=== PATIENT | female | born 1985 | race Caucasian/White ===

== ENCOUNTER 2019-07-09 19:26 | Emergency (ER) | payer MEDICAID, SELFPAY ==
[2019-07-09 19:27] VITALS: BP 133/84; PULSE 85; RESP 18; TEMP 36.2; O2SAT 94; BMI 51.5
--- NOTE | 2019-07-09 20:04 | ED.VIS.GEN ---
History of Present Illness Chief Complaint: Shortness of Breath Informant: Patient Onset: Today Context: Gradual Onset Current Severity: Mild Maximum Severity: Mild Narrative: She presents with cough and burning sensation in her chest today. She states it feels like when she had walking pneumonia couple months ago. She has not noted a fever. She is not a smoker. She denies DVT risk factors. Past Medical History - Allergies and Home Meds Allergies/Adverse Reactions: Allergies No Known Allergies Allergy (Verified 07/09/19 19:30) Primary Care Physician: Diego Yoon,Nereida Galan [Primary Care Provider] - 1 Week if not improving Prior records reviewed: Yes Surgical History: - - Thyroidectomy Smoking Status: Never smoker Review of Systems General: Denies: Chills Eyes: Denies: Visual changes - bilaterally ENT: Denies: Bilateral ear pain Cardiovascular: Reports: Chest pain - With cough only Respiratory: Reports: Dyspnea, Cough, Sputum Gastrointestinal: Denies: Abdominal pain, Nausea, Vomiting Genitourinary: Denies: Dysuria Musculoskeletal: Reports: Myalgias, Back pain Skin: Denies: Rash Neurological: Denies: Headache Hematologic: Denies: Easy bruising Allergy: Denies: Uticaria Physical Exam Vital Signs/Narrative: Vital Signs Temp Pulse Resp BP Pulse Ox 07/09/19 19:27 97.1 F L 85 18 133/84 H 94 Inital Vital Signs reviewed: Yes General: Well nourished, Well developed Head: Normocephalic ENT: Moist mucous membranes Neck: Supple Cardiovascular: Regular rate, Regular rhythm Respiratory: No distress, CTA bilaterally Abdomen: Soft, Nontender Back: Nontender Extremities: Nontender Skin: Normal color Neurological: Alert, Oriented x3 Psychological: Normal affect Diagnostic/Tx/Re-eval Impressions Chest X-Ray 07/09/19 20:05 IMPRESSION: Normal x-ray examination of the chest. Electronically Signed: Carson Howard DO at 20:28 EDT Tel , Service support , 07/09/19 20:05 Chest PA and Lateral [RAD] Stat Laboratory Results 07/09/19 07/09/19 07/09/19 20:52 20:52 20:52 WBC 12.8 H RBC 4.31 Hgb 12.5 Hct 38.5 MCV 89.3 MCH 29.0 MCHC 32.5 RDW Std Deviation 48.9 H RDW Coeff of Kristen 14.8 H Plt Count 398 MPV 9.2 Immature Gran % (Auto) 0.300 Neut % (Auto) 56.8 Lymph % (Auto) 35.1 Pleasants % (Auto) 5.6 Eos % (Auto) 1.7 Baso % (Auto) 0.5 Absolute Neuts (auto) 7.3 Absolute Lymphs (auto) 4.51 Nucleated RBC % 0 Differential Comment SCANNED D-Dimer Quant (PE/DVT) < 0.27 L Sodium 142 Potassium 3.7 Chloride 109 H Carbon Dioxide 28.0 Anion Gap 5 BUN 17 Creatinine 1.09 H Estim Creat Clear Calc 68.72 Est GFR (MDRD) Af Amer 74 Est GFR (MDRD) Non-Af 61 BUN/Creatinine Ratio 15.6 Glucose 120 H Calcium 8.3 L Troponin I < 0.015 Serum , Qual 07/09/19 20:52 WBC RBC Hgb Hct MCV MCH MCHC RDW Std Deviation RDW Coeff of Kristen Plt Count MPV Immature Gran % (Auto) Neut % (Auto) Lymph % (Auto) Pleasants % (Auto) Eos % (Auto) Baso % (Auto) Absolute Neuts (auto) Absolute Lymphs (auto) Nucleated RBC % Differential Comment D-Dimer Quant (PE/DVT) Sodium Potassium Chloride Carbon Dioxide Anion Gap BUN Creatinine Estim Creat Clear Calc Est GFR (MDRD) Af Amer Est GFR (MDRD) Non-Af BUN/Creatinine Ratio Glucose Calcium Troponin I Serum , Qual NEGATIVE - EKG Follow-up EKG Interpretation: Sinus Rhythm - Sinus at 88 with no acute ischemia. - Medical Decision Making Patient initially had two-view chest x-ray performed which is unremarkable. In light of the fact that this did not explain her current symptoms, further work-up was pursued. Cardiac evaluation as well as d-dimer are unremarkable. Test results are discussed with the patient. I believe she has bronchitis. She will use Tylenol and ibuprofen at home. Return for worsening symptoms or concerns. ED Disposition - Plan for ED Patient: Disposition: Home or Assisted Living Diagnosis: Bronchitis Instructions: BRONCHITIS, No Antibiotic (Adult) Referrals: Nereida Ramos [Primary Care Provider] - 1 Week if not improving
--- NOTE | 2019-07-09 20:05 | RAD_ITS ---
STUDY: X-RAY CHEST REASON FOR EXAM: Female, 33 years old. Chest pain TECHNIQUE: PA and lateral views of the chest. COMPARISON: None. FINDINGS: The lungs are clear and expanded. There is no demonstrated pleural abnormality. Normal size heart. Normal mediastinum and paddy. Normal visualized pulmonary arteries. Normal visualized aortic arch and descending thoracic aorta. Normal visualized thoracic spine. Normal visualized ribs, clavicles, and shoulders. There is no demonstrated abnormality of the visualized soft tissue structures of the upper abdomen. RAD/Chest PA and Lateral IMPRESSION: Normal x-ray examination of the chest. Electronically Signed: Carson Howard DO at 20:28 EDT Tel , Service support ,
--- NOTE | 2019-07-09 20:47 | EKG12_ITS ---
Test Reason : CP Blood Pressure : / mmHG Vent. Rate : 088 BPM Atrial Rate : 088 BPM P-R Int : 166 ms QRS Dur : 098 ms QT Int : 386 ms P-R-T Axes : 049 062 039 degrees QTc Int : 467 ms Normal sinus rhythm Normal ECG Confirmed by JB HARRISON, DEBRA ([id number]), managing editor ROSARIO PEREIRA ([id number]) on 07/14/2019 10:37:00 AM Referred By: Jacqueline Cunha Confirmed By:GERMAN MUHAMMAD MD
--- NOTE | 2019-07-09 20:51 | ED.RN ---
NO OLD EKGS IN MUSE
[2019-07-09 21:05] LABS: Absolute Lymphocyte Count 4.51 X10^3/uL (0.83-4.51); Absolute Neutrophil Count 7.3 X10^3/uL (2.0-7.7); Basophil# 0.07 X10^3/uL; Basophil% 0.5 % (0-1); Eosinophil# 0.22 X10^3/uL; Eosinophils% 1.7 % (0-5); Hematocrit 38.5 % (37-47); Hemoglobin 12.5 g/dL (12.0-15.0); Lymphocyte # 4.51 X10^3/ul (4.0); Lymphocyte % 35.1 % (19-41); Mean Corp Hgb Conc 32.5 g/dL (32-36); Mean Corpuscular Volume 89.3 fL (81-99); Mean Platelet Vol. 9.2 fl (6.2-12.0); Monocyte# 0.72 X10^3/uL; Monocyte% 5.6 % (0-10); NRBC Flagged by Analyzer 0 % (0-5); Neutrophil # 7.28 X10^3/uL (2.7-7.7); Neutrophil % 56.8 % (47-70); POSITIVE MORPHOLOGY YES; Platelet Count 398 K/mm3 (150-450); RBC Distribution Width CV 14.8 % (11.6-14.6); RBC Distribution Width SD 48.9 fl (35.1-43.9); Red Blood Count 4.31 M/mm3 (4.2-5.4); White Blood Count 12.8 K/mm3 (4.4-11.0)
[2019-07-09 21:08] LABS: Differential Indicated SCAN CRITERIA MET
[2019-07-09 21:16] LABS: D-Dimer Quantitative (DVT/PE) < 0.27 FEU/ug/m (0.27-0.49)
[2019-07-09 21:21] LABS: Internal QC Validated? YES +Cl - CLEAR BKGD; Pregnancy, Serum, hCG Quali. NEGATIVE Negative
[2019-07-09 21:29] LABS: Anion Gap 5 (5-15); BUN 17 mg/dL (7-18); BUN/Creat Ratio 15.6 RATIO (10-20); Calcium,Total 8.3 mg/dL (8.5-10.1); Chloride 109 mmol/L (98-107); Creatinine, Serum 1.09 mg/dL (0.55-1.02); EST Glomerular Filtration Rate 61 mL/min (>60); Est Glom Filt Rate - Afr Amer 74 mL/min (>60); Estimated Creatinine Clearance 68.72 ml/min; Glucose 120 mg/dL (74-106); Potassium 3.7 mmol/L (3.5-5.1); Sodium Level 142 mmol/L (136-145)
[2019-07-09 21:34] LABS: Differential Comment SCANNED
[2019-07-09 22:24] VITALS: PULSE 86; RESP 19; O2SAT 95
[2019-07-09 22:37] VITALS: RESP 18
== END 2019-07-09 22:38 | disposition home or self-care (01) ==
PROVIDERS: Emergency Provider Emergency Medicine; Referring Provider Nurse Practitioner Family
DX: J40 Bronchitis, not specified as acute or chronic (principal); Z87.01 Personal history of pneumonia (recurrent)
CPT/HCPCS: 71046; 80048; 84484; 84703; 85025; 85379; 93005; 99283

== ENCOUNTER → 2020-03-28 | Outpatient (CLI) | payer MEDICAID, SELFPAY ==
--- NOTE | 2020-03-28 14:30 | LES_PTH ---
PATIENT: CHARLES MATTHEW LOC: [facility] U#:[id number] AGE/SX: 34/F ROOM: RE03/28/[address]: Dr. Malvin Mcknight MD : 1985 BED: DIS: 03/28/2020 SPEC #: [id number] RECD: 03/28/20 15:26 STATUS: LIV RERa #: [id number] JEAN CLAUDE: 03/28/20 14:[address]: Malvin Mcknight DEPT: SURGICAL PATHOLOGY RECD BY: Liam Thornton ENTERED: 03/29/20 09:24 SP TYPE: Lesion OTHR DR: Nereida [facility] Tissues: Skin of abdomen, NOS Procedures: Surgery Specimen Level IV HEADER OPERATION: 4 mm punch biopsy of abdominal skin lesion PRE-OP DIAGNOSIS: Neoplasm of skin TISSUE SUBMITTED: Punch biopsy abdominal skin lesion MICROSCOPIC DIAGNOSIS Abdominal skin lesion, punch biopsy: Intradermal nevus. See comment. SJ:pio 03/30/20 COMMENT Clinical correlation and appropriate follow up are necessary. MICROSCOPIC DESCRIPTION Slides are reviewed. GROSS DESCRIPTION Received in fixative is one container labeled with the patient's name and designated punch biopsy, abdominal skin lesion. The specimen consists of a punch biopsy of dark brown skin measuring 0.4 cm in diameter and 0.5 cm in length. The specimen is totally submitted in one cassette. / SJ:pio 03/29/20 TC:1 CPT: 16535
[2020-03-28 15:04] VITALS: BMI 51.5
== END | disposition home or self-care (01) ==
LOC: LABSPEC 15:45
PROVIDERS: Referring Provider Surgery; Visit Provider Surgery
DX: D22.5 Melanocytic nevi of trunk (principal)
CPT/HCPCS: 88305

== ENCOUNTER → 2020-08-19 11:47 | Outpatient (CLI) | payer MEDICAID, SELFPAY ==
[2020-03-28 15:04] VITALS: BMI 51.5
[2020-08-19 15:51] LABS: Thyroid Stim Hormone (TSH) 2.74 uIU/mL (0.358-3.74)
[2020-08-23 10:27] LABS: Anti-Thyroglobulin AB < 1.0 IU/mL (0.0-0.9); Thyroglobulin, Serum Qt. < 0.1 ng/mL (1.5-38.5)
== END ==
PROVIDERS: Referring Provider Internal Medicine Endocrinology, Diabetes & Metabolism; Visit Provider Internal Medicine Endocrinology, Diabetes & Metabolism
DX: E89.0 Postprocedural hypothyroidism (principal); C73 Malignant neoplasm of thyroid gland
CPT/HCPCS: 36415; 84432; 84439; 84443; 86800

== ENCOUNTER 2020-08-20 08:15 | Outpatient (CLI) | payer MEDICAID, SELFPAY ==
[2020-03-28 15:04] VITALS: BMI 51.5
[2020-08-20 08:23] VITALS: BP 108/68; PULSE 78; TEMP 36.2
[2020-08-20 08:24] VITALS: TEMP 36.2
[2020-08-20 08:43] VITALS: BMI 55.2
--- NOTE | 2020-08-20 18:20 | OB.TRI.HP_ITS ---
History of Present Illness Date of Service: 08/20/20 Was patient seen by the physician?: No Reason For Visit: DECREASED MOVEMENT Date of Service: 08/20/20 Final FRANNIE: 10/29/20 Final FRANNIE Source: US <20 weeks Gestational age: 30 Weeks and 0 Days History of Present Illness: 30-week intrauterine who presents to labor and delivery for decreased movement. Patient reports that her toddler kicked her in the stomach last evening and she has felt less movement this morning. She presently sees Dr. Blair in [place] and will see him during the rest of the . She denies any contractions and points to an area just below her umbilicus where the toddler kicked her last evening. No bruising or tenderness noted at this time per nursing staff. Patient has not used Tylenol or other medications for discomfort. She denies any vaginal bleeding. Allergies No Known Allergies Allergy (Verified 03/28/20 15:01) - Pertinent Past Medical History Medical History: Past Medical History (Last Reviewed 03/28/20 @ 15:02 by Radha Mckenzie) (Acute) Hx of seizure disorder (Acute) Nausea and vomiting in (Acute) Neoplasm of uncertain behavior (Acute) Fatigue (Acute) Thyroid cancer (Chronic) Postoperative primary hypothyroidism (Chronic) Surgical History: Past Surgical History (Last Reviewed 03/28/20 @ 15:02 by Radha Mckenzie) History of (Acute) H/O total thyroidectomy (Inactive) Physical Exam Vitals: Vital Signs Temp Pulse BP 97.2 F L 78 108/68 08/20/20 08:24 08/20/20 08:23 08/20/20 08:23 NST - FHR Rate Baby A NST Reactive:: Yes, Appropriate for gestational age FHR Category:: Category I Uterine Activity:: No contractions noted. Impression/Plan 38-week intrauterine with minor trauma last evening. Reactive nonstress test today. No evidence of severe trauma. Recommend follow-up with her [employer]NALYST this week. Tylenol as needed for minor discomfort. To return if decreased movement continues to be noted or any bleeding.
== END 2020-08-20 09:10 | disposition home or self-care (01) ==
LOC: WPOUT 08:21 → WP 08:22
PROVIDERS: Referring Provider Obstetrics & Gynecology; Visit Provider Obstetrics & Gynecology
DX: O71.89 Other specified obstetric trauma (principal); O99.353 Diseases of the nervous system complicating pregnancy, third trimester; G40.909 Epilepsy, unspecified, not intractable, without status epilepticus; O99.283 Endocrine, nutritional and metabolic diseases complicating pregnancy, third trimester; E89.0 Postprocedural hypothyroidism; Z3A.38 38 weeks gestation of pregnancy
CPT/HCPCS: 59025; 59050; 99218; G0378

== ENCOUNTER → 2021-03-27 15:49 | Outpatient (CLI) | payer MEDICAID, SELFPAY ==
[2020-11-30 08:44] VITALS: BMI 55.2
[2021-03-27 19:37] LABS: T4 Free Direct 0.19 ng/dL (0.76-1.46)
[2021-03-29 16:12] LABS: Anti-Thyroglobulin AB < 1.0 IU/mL (0.0-0.9); Thyroglobulin, Serum Qt. < 0.1 ng/mL (1.5-38.5)
== END ==
PROVIDERS: Referring Provider Internal Medicine Endocrinology, Diabetes & Metabolism; Visit Provider Internal Medicine Endocrinology, Diabetes & Metabolism
DX: C73 Malignant neoplasm of thyroid gland (principal); E89.0 Postprocedural hypothyroidism
CPT/HCPCS: 36415; 84432; 84439; 84443; 86800

== ENCOUNTER → 2021-07-13 14:48 | Outpatient (CLI) | payer MEDICAID, SELFPAY ==
[2021-07-13 17:59] LABS: T4 Free Direct 0.48 ng/dL (0.76-1.46)
[2021-07-18 23:23] LABS: Anti-Thyroglobulin AB < 1.0 IU/mL (0.0-0.9); Thyroglobulin, Serum Qt. < 0.1 ng/mL (1.5-38.5)
== END ==
PROVIDERS: Referring Provider Internal Medicine Endocrinology, Diabetes & Metabolism; Visit Provider Internal Medicine Endocrinology, Diabetes & Metabolism
DX: C73 Malignant neoplasm of thyroid gland (principal); E89.0 Postprocedural hypothyroidism
CPT/HCPCS: 36415; 84432; 84439; 84443; 86800

== ENCOUNTER → 2021-08-30 12:12 | Outpatient (CLI) | payer MEDICAID, SELFPAY ==
[2021-08-30 15:44] LABS: T4 Free Direct 1.16 ng/dL (0.76-1.46); Thyroid Stim Hormone (TSH) 4.44 uIU/mL (0.358-3.74)
== END ==
PROVIDERS: Referring Provider Internal Medicine Endocrinology, Diabetes & Metabolism; Visit Provider Internal Medicine Endocrinology, Diabetes & Metabolism
DX: E89.0 Postprocedural hypothyroidism (principal)
CPT/HCPCS: 36415; 84439; 84443

== ENCOUNTER → 2022-03-14 | Outpatient (CLI) | payer MEDICAID, SELFPAY ==
[2022-03-14 15:34] LABS: T4 Free Direct 1.03 ng/dL (0.76-1.46); Thyroid Stim Hormone (TSH) 1.75 uIU/mL (0.358-3.74)
== END | disposition home or self-care (01) ==
LOC: BIMLAB 12:00
PROVIDERS: Referring Provider Internal Medicine Endocrinology, Diabetes & Metabolism; Visit Provider Internal Medicine Endocrinology, Diabetes & Metabolism
DX: E89.0 Postprocedural hypothyroidism (principal)
CPT/HCPCS: 36415; 84439; 84443

== ENCOUNTER → 2022-05-11 | Outpatient (CLI) | payer MEDICAID, SELFPAY ==
--- NOTE | 2022-05-11 18:53 | RAD_ITS ---
STUDY: X-RAY - RIGHT SHOULDER REASON FOR EXAM: Female, 36 years old. PAIN TECHNIQUE: 4 view(s) of the shoulder. COMPARISON: None. FINDINGS: Normal glenohumeral articulation. Normal acromioclavicular joint. Normal acromion. Normal humeral head and visualized proximal humerus. The soft tissue structures are unremarkable. Normal visualized pulmonary apex. RAD/Shoulder min 2 Views IMPRESSION: Normal x-ray examination of the shoulder. Electronically Signed: Ana Grey MD at 20:20 EDT ,
--- NOTE | 2022-05-11 18:53 | RAD_ITS ---
EXAM: XR CERVICAL SPINE, 2 OR 3 VIEWS CLINICAL INDICATION: PAIN TECHNIQUE: Frontal and lateral views of the cervical spine. This report was created using [employer] report [place] technology. COMPARISON: None. FINDINGS: VERTEBRAE: There is mild straightening of the normal cervical lordosis. This can suggest neck strain. Preserved vertebral body height. No acute fracture. No spondylolisthesis. No significant facet arthropathy. DISC SPACES: Unremarkable. Disc spaces are maintained. SOFT TISSUES: Unremarkable. No prevertebral soft tissue widening. LUNG APICES: Clear. RAD/Cerv Spine 2 or 3 Views IMPRESSION: There is mild straightening of the normal cervical lordosis. This can suggest neck strain. Electronically Signed: Michael Yee MD at 21:16 EDT ,
--- NOTE | 2022-05-11 18:53 | RAD_ITS ---
EXAM: XR THORACIC SPINE, 3 VIEWS CLINICAL INDICATION: PAIN TECHNIQUE: Frontal, lateral and swimmer''s views of the thoracic spine. This report was created using [employer] report [employer] technology. COMPARISON: None. FINDINGS: VERTEBRAE: Unremarkable. Preserved vertebral body height. No fracture. No spondylolisthesis. Preservation of the normal thoracic kyphosis. No significant facet arthropathy. DISC SPACES: Unremarkable. Disc spaces are maintained. RAD/Thoracic Spine 3 Views IMPRESSION: No evidence of thoracic spinal fracture or spondylolisthesis. Electronically Signed: Michael Yee MD at 21:17 EDT ,
== END | disposition home or self-care (01) ==
LOC: RAD 18:46
PROVIDERS: Visit Provider Nurse Practitioner Adult Health
DX: M25.511 Pain in right shoulder (principal); M54.2 Cervicalgia; M54.6 Pain in thoracic spine
CPT/HCPCS: 72040; 72072; 73030

== ENCOUNTER 2022-06-19 16:30 | Outpatient (RCR) | payer MEDICAID, SELFPAY ==
--- NOTE | 2022-05-24 18:01 | HP.PTEVAL ---
Patient's Visit Information CHARLES MATTHEW is a 36 year old F referred to Physical Therapy by ERNESTINA Wright with a diagnosis of neck and shoulder pain. Date of Evaluation: 05/24/22 Physical Therapist: Michael Ling, PT, ATC - Visit Plan Frequency: 2x /Week Duration: 2-4 Weeks Plan: Postural edu, RRIS, R UE strengthening, scap stab ex's, DTR to c/s and R UT, UBE, and HEP - Subjective Pt reports she began to experience an itching sensation on her R upper trap about 2 months ago. Pt reports she has a Hx of cancer in her frailty, and so her doctor wanted to rule out cancer first. Now that the cancer has been ruled out, she has been sent here to try and alleviate her pain. Pt reports the pain is always worse at night. Pt reports the pain wakes her up multiple times throughout the night. Pt reports she has to get up and move around in order for her pain to stop hurting and feeling itchy. Pt reports no PMHx of this pain. Pt reports she has neck pain today, but notes this is the first time she has had this pain. Pt denies tingling or numbness at this time, but notes she has carpal tunnel which needs to be surgically repaired. Pt reports she was placed on a steroid the other day and notes this has helped her pain a lot. Pt reports the only this that causes this pain to worsen is sleeping on her R shoulder. 1/10 pain currently, 7/10 pain at worst (when she is trying to sleep) - Pain R upper trap Pain Intensity (Out of 10): 1 Pain Intensity Range: 7 - Objective Neuro: B UE sensation is WNL to light touch. B bicipital reflex= 2/3. Palpation: Pt is very sore on the levator scap region. Muscle guarding present at this time. ROM: B UE is WFL when compared bilaterally. MMT: R UE is grossly 4/5 throughout. L UE 5/5 throughout. Special testing: Pos apley compression test, neg distraciton test. - Balance/Special Test Scores Quick DASH Score: 25.0000 - Goals Goal 1:: Decrease R shoulder pain x 50% to aid with sleep Goal Time Frame: 4-6 Weeks Goal 2:: Increase R UE strength x 1 grade to aid with IADL's Goal Time Frame: 4-6 Weeks Goal 3:: I with HEP Goal Time Frame: 4-6 Weeks - Rehabilitation Potential Physical Therapy Diagnosis: Pt has neck pain, shoulder pain, and sleep difficulty at this time secondary to R upper trap strain Rehabilitation Potential: Good - Anticipated Interventions Patient/Client Instruction: Educate patient on: Condition, Plan of Care For the Purpose of:: To improve self management Therapeutic Exercise to Include: Strength training, Endurance training, Postural training, Scapular Strength/Stabilization For the Purpose of:: To decrease pain, To improve muscle performance and motor function, To increase tolerance to activity/condition/position Manual Therapy Techniques to Include: Soft tissue mobilization For the Purpose of:: To decrease pain Thank you for the opportunity to evaluate your patient. For Medicare and Medicare HMO plans, please review the plan of care and approve it. It will need to be FAXED BACK to us at [phone] for Medicare purposes. For Medicare only, by signing this I certify the plan of care. Please let me know if there are questions or concerns regarding this plan of care. Physician Signature: Date:
--- NOTE | 2022-10-17 14:01 | HP.PT.NRP ---
CHARLES MATTHEW was seen in my office for initial evaluation on 05/24/22. The following Plan of Care was established for this patient: Initial Frequency: 2x /Week Initial Duration: 2-4 Weeks Patient/Client Instruction: Educate patient on: Condition, Plan of Care For the Purpose of:: To improve self management Therapeutic Exercise to Include: Strength training, Endurance training, Postural training, Scapular Strength/Stabilization For the Purpose of:: To decrease pain, To improve muscle performance and motor function, To increase tolerance to activity/condition/position Manual Therapy Techniques to Include: Soft tissue mobilization For the Purpose of:: To decrease pain This patient was last seen in our office . Pertinent comments regarding their Physical therapy will appear below: Pt was treated for neck pain for 3 PT visits through the date of 06/19/22. Pt has not returned through todays date, and is discontinued at this time At this point I will be discontinuing this patient from physical therapy. I would be happy to see this patient again in the future if found appropriate by the physician. Thank you! Michael Ling, PT, ATC Balance/Gait/Functional tests - Balance/Special Test Scores Quick DASH Score: 25.0000
== END 2022-06-19 19:00 | disposition home or self-care (01) ==
LOC: PT 16:30
PROVIDERS: Referring Provider Nurse Practitioner Adult Health; Visit Provider Nurse Practitioner Adult Health
DX: M54.2 Cervicalgia (principal); M54.9 Dorsalgia, unspecified; M25.511 Pain in right shoulder
CPT/HCPCS: 97110; 97161

== ENCOUNTER → 2022-09-17 | Outpatient (CLI) | payer MEDICAID, SELFPAY ==
--- NOTE | 2022-09-17 13:37 | US_ITS ---
EXAM: US FIRST TRIMESTER , endovaginal CLINICAL INDICATION: Dating and viability determination TECHNIQUE: Real-time endovaginal obstetrical ultrasound of the maternal pelvis and a first trimester with image documentation. This report was created using [employer] report generation technology. COMPARISON: None. FINDINGS: GESTATION: 16 mm intrauterine gestational sac identified containing a 3.5 mm yolk sac but no embryo. PLACENTA/AMNIOTIC FLUID: Cannot be adequately evaluated due to the early gestational age. UTERUS/CERVIX: Multiple calcified uterine fibroids are noted measuring up to 3.6 cm in diameter. Nabothian cysts are noted. OVARIES: Right ovary measures 2.8 x 1.9 x 2.0 cm. Left ovary measures 3.4 x 2.4 x 2.6 cm and contains an 18 mm corpus luteum. No mass. FREE FLUID: No adnexal mass or free pelvic fluid. US/Init OB < 14Wks US IMPRESSION: Early intrauterine gestational sac containing a yolk sac but no embryo. Follow-up ultrasound exam in 7-10 days recommended to confirm viable . Multiple calcified uterine fibroids. Electronically Signed: Kali Walton MD at 8:05 EST ,
== END | disposition home or self-care (01) ==
LOC: US 13:36
PROVIDERS: Referring Provider Specialist; Visit Provider Specialist
DX: Z36.87 Encounter for antenatal screening for uncertain dates (principal)
CPT/HCPCS: 76801

== ENCOUNTER → 2022-09-27 | Outpatient (CLI) | payer MEDICAID, SELFPAY ==
--- NOTE | 2022-09-27 12:08 | US_ITS ---
STUDY: FIRST TRIMESTER OBSTETRICAL ULTRASOUND REASON FOR EXAM: Female, 36 years old REPEAT VIABILITY LMP: 08/19/2022. TECHNIQUE: Transvaginal TECHNICAL QUALITY: Adequate. PRIOR ULTRASOUND: Comparison is made with prior study dated 09/17/2022. FINDINGS: There is visualization of a single gestational sac in a normal intrauterine position. The mean sac diameter (MSD) measures 3.24 cm, indicating an estimated gestational age (EGA) of 8 weeks, 3 days. The gestational sac shape is within normal limits. Small amount of fluid is seen surrounding the gestational sac There is a visualized yolk sac. The yolk sac measures 5.1 mm. The placenta is non-visualized. There is visualization of a live embryo. The crown-rump length (CRL) measures 1.06 cm, indicating an estimated gestational age (EGA) of 7 weeks, 2 days. There is demonstrated cardiac activity with a heart rate of 141 bpm. The estimated gestation age (EGA) by LMP is 7 weeks, 4 days. The estimated date of delivery (FRANNIE) by LMP is 05/12/2022. The estimated gestation age (EGA) by US is 7 weeks, 6 days. The estimated date of delivery (FRANNIE) by US is 05/10/2022. The uterus measures 12.1 cm x 8.7 cm x 7.2 cm. Once again, 3 calcified fibroids are seen in the uterine body. The largest measures 3.6 cm x 4.1 cm x 3.5 cm. The cervix is closed. The right ovary measures 2.8 cm x 2.4 cm x 1.8 cm. There is no right ovarian cyst. There is no visualized right adnexal mass or complex lesion. The left ovary measures 3.1 cm x 2.5 cm x 2.1 cm. There is no left ovarian cyst. There is no visualized left adnexal mass or complex lesion. There is no fluid in the cul de sac. US/Transvaginal w/Preg US IMPRESSION: Single live intrauterine gestation with a mean gestational age of 7 weeks and 6 days. Electronically Signed: Case Ayala MD at 13:22 EST ,
== END | disposition home or self-care (01) ==
LOC: US 12:06
DX: Z36.2 Encounter for other antenatal screening follow-up (principal)
CPT/HCPCS: 76817

== ENCOUNTER 2022-10-09 16:46 | Emergency (ER) | payer MEDICAID, SELFPAY ==
[2022-10-09 16:48] VITALS: BP 131/75; PULSE 87; RESP 19; TEMP 36.8; O2SAT 96; BMI 52.4
--- NOTE | 2022-10-09 17:21 | EDS_ITS ---
HPI History of Present Illness Chief Complaint: Chest Pain Informant: patient Onset/Context/Timing Onset: Yesterday Current Severity: Mild Maximum Severity: Moderate Narrative Narrative: Patient presents secondary to cough and congestion along with chest pain. She is been sick for about 10 days with cough and congestion. She states that her entire family's been sick. Last evening she developed a sharp pain in the center portion of her chest with a cough. She was seen in urgent care for this and sent to the ER to rule out pneumonia and blood clot. Patient is currently 10 weeks . [facility] Medical History (Updated 10/09/22 @ 18:[address] Ghazala Gamez MD) Fatigue Hx of seizure disorder Nausea and vomiting in Neoplasm of uncertain behavior Postoperative primary hypothyroidism Thyroid cancer Home Medications prenat.vits,chanel,dyy-[id number] 1 tab PO DAILY 03/28/20 [History Last Taken 10/09/22] levothyroxine 300 mcg tablet 300 mcg PO .Mon-Sat, skip Sun #26 tabs 07/04/22 [Rx Last Taken 10/09/22] Allergy/AdvReac Type Severity Reaction Status Date / Time No Known Allergies Allergy Verified 10/09/22 16:52 Family History Father Melanoma Mother Diabetes Surgical History H/O total thyroidectomy History of Social History Smoking Status: Never smoker second hand exposure: No alcohol intake: never substance use type: does not use caffeine: Yes what type of physical activity do you participate in: walking frequency: 1-2 times per week seatbelt use: always ROS ROS ED Constitutional Constitutional ED: Reports other Details: Low-grade fever early in illness. ; Denies chills Eyes Eyes: Denies change in vision or discharge from eye(s) ENT ENT ED: Denies discharge from eye(s), rhinorrhea or sore throat Cardiovascular Cardiovascular: Reports chest pain; Denies palpitations Respiratory/Chest Respiratory/Chest: Reports cough and sputum; Denies dyspnea Gastrointestinal Gastrointestinal: Denies abdominal pain, diarrhea, nausea or vomiting Genitourinary Genitourinary ED: Denies dysuria Musculoskeletal Musculoskeletal: Denies back pain or extremity pain Integumentary Denies Abrasions or rash Neurologic Neurologic: Denies headache(s) or weakness Psychiatric Psychiatric: Denies anxiety or depression Allergic/Immunologic Allergic/Immunologic ED: Denies lip swelling or urticaria EXAM Physical Exam Const Vital Signs: 10/09/22 16:48 Temperature 98.2 F Temperature Source Temporal Pulse Rate 87 Respiratory Rate 19 H Blood Pressure 131/75 H Blood Pressure Mean 93 Pulse Ox 96 Oxygen Delivery Method Room Air Positive well nourished and well developed General Appearance ED: well developed HEENT Reports normocephalic and head/scalp atraumatic Eyes PERRL and EOMs intact bilaterally Neck supple Chest Wall inspection of chest normal and palpation of chest normal Resp normal respiratory effort and clear to auscultation bilaterally Cardio regular rate and regular rhythm GI normal to inspection, nondistended, normoactive bowel sounds Palpation: soft Extremity normal to inspection Extremity Narrative: 2+ bilateral lower extremity edema. Neuro oriented x3 and no sensory deficits noted Sensorium / Orientation: alert Motor Exam: strength 5/5 throughout Psych mental status grossly normal Skin no rashes or lesions noted MDM MDM MDM Narrative Medical decision making narrative: Patient placed on preparing box tender. EKG, chest x-ray, lab work obtained. Swab for COVID and influenza ordered. Lab Data Attestation: I reviewed the patient's lab results. Labs: Laboratory Results - last 24 hr 10/09/22 10/09/22 10/09/22 17:28 17:28 17:28 WBC 6.6 RBC 4.19 L Hgb 11.7 L Hct 36.2 L MCV 86.4 MCH 27.9 MCHC 32.3 RDW Std Deviation 46.5 H RDW Coeff of Kristen 14.6 Plt Count 389 MPV 8.6 Immature Gran % (Auto) 0.600 Neut % (Auto) 74.1 H Lymph % (Auto) 15.8 L [place] % (Auto) 7.8 Eos % (Auto) 1.2 Baso % (Auto) 0.5 Absolute Neuts (auto) 4.9 Absolute Lymphs (auto) 1.05 Nucleated RBC % 0 D-Dimer Quant (PE/DVT) < 0.27 L Sodium 137 Potassium 3.9 Chloride 103 Carbon Dioxide 25.0 Anion Gap 9 BUN 12 Creatinine 0.70 Estim Creat Clear Calc 103.01 Est GFR (MDRD) Af Amer 121 Est GFR (MDRD) Non-Af 100 BUN/Creatinine Ratio 17.1 Glucose 115 H Calcium 8.6 Troponin I High Sens 4 Radiography Chest X-Ray - ED: 1 View, Read by ED Physician, Normal, Heart, Lungs and Mediastinum Diagnostic Testing: Clinical Impression(s) from Imaging Studies Chest X-Ray 10/09/22 17:41 IMPRESSION: No acute cardiopulmonary disease or interval change. Electronically Signed: Alfred Haddad DO at 17:57 EST Reading Location ID and State: [address] [place] [address] Tel [phone], Service support , EKG Initial EKG: Attestation: I personally reviewed and interpreted this EKG as follows: Interpretation: Sinus Rhythm (Sinus 87 with no acute ischemia.) Treatment and Re-Evaluation Narrative: Repeat evaluation patient resting comfortably. Vital signs have been normal throughout her ED stay. CBC and chemistry studies unremarkable. Troponin negative. D-dimer is negative. Chest x-ray per my interpretation reveals no focal infiltrate. Radiology interpretation is reviewed and agrees. COVID and influenza are still pending at this time, however she is outside the treatment window for either of these. I advised her that I will call her if either is positive just so she knows, but would not change her management. She is comfortable this plan. She will continue supportive care at home. Discharge Plan Triage Chief Complaint: Chest Pain ED Provider: Ghazala Gamez Dx/Rx/DC Orders Clinical Impression: Viral syndrome Instructions: ED Viral Syndrome (Adult) Prescriptions: No Action prenat.vits,chanel,zjh-jqej-lsuzh Tablet 1 tab PO DAILY levothyroxine 300 mcg tablet 300 mcg PO .Mon-Sat, skip Sun Qty: 26 3RF Primary Care Provider: [facility] N[facility] - 1 Week if not improving Disposition Disposition: Home, Self Care Discharge Date/Time: 10/09/22 18:24
[2022-10-09 17:37] LABS: Absolute Lymphocyte Count 1.05 X10^3/uL (0.83-4.51); Absolute Neutrophil Count 4.9 X10^3/uL (2.0-7.7); Basophil# 0.03 X10^3/uL; Basophil% 0.5 % (0-1); Eosinophil# 0.08 X10^3/uL; Eosinophils% 1.2 % (0-5); Hematocrit 36.2 % (37-47); Hemoglobin 11.7 g/dL (12.0-15.0); Lymphocyte # 1.05 X10^3/ul (0.83-4.51); Lymphocyte % 15.8 % (19-41); Mean Corp Hgb Conc 32.3 g/dL (32-36); Mean Corpuscular Hgb 27.9 pg (27.0-32.0); Mean Corpuscular Volume 86.4 fL (81-99); Mean Platelet Vol. 8.6 fl (6.2-12.0); Monocyte# 0.52 X10^3/uL; Monocyte% 7.8 % (0-10); NRBC Flagged by Analyzer 0 % (0-5); Neutrophil # 4.91 X10^3/uL (2.7-7.7); Neutrophil % 74.1 % (47-70); Platelet Count 389 K/mm3 (150-450); RBC Distribution Width CV 14.6 % (11.6-14.6); RBC Distribution Width SD 46.5 fl (35.1-43.9); Red Blood Count 4.19 M/mm3 (4.2-5.4); White Blood Count 6.6 K/mm3 (4.4-11.0)
--- NOTE | 2022-10-09 17:41 | RAD_ITS ---
STUDY: X-RAY CHEST REASON FOR EXAM: Female, 37 years old. Cough. Chest pain. 10 week . TECHNIQUE: Single AP portable view of the chest. COMPARISON: July 09, 2019. FINDINGS: The lungs are clear and expanded. There is no demonstrated pleural abnormality. Normal size heart. Normal mediastinum and paddy. Normal visualized pulmonary arteries. Normal visualized aortic arch and descending thoracic aorta. Normal visualized thoracic spine. Normal visualized ribs, clavicles, and shoulders. There is no demonstrated abnormality of the visualized soft tissue structures of the upper abdomen. RAD/Chest 1 View (Portable) IMPRESSION: No acute cardiopulmonary disease or interval change. Electronically Signed: Alfred Haddad DO at 17:57 EST ,
[2022-10-09 18:05] LABS: Anion Gap 9 (5-15); BUN 12 mg/dL (7-18); BUN/Creat Ratio 17.1 RATIO (10-20); Calcium,Total 8.6 mg/dL (8.5-10.1); Chloride 103 mmol/L (98-107); EST Glomerular Filtration Rate 100 mL/min (>60); Est Glom Filt Rate - Afr Amer 121 mL/min (>60); Estimated Creatinine Clearance 103.01 ml/min; Glucose 115 mg/dL (74-106); Potassium 3.9 mmol/L (3.5-5.1); Sodium Level 137 mmol/L (136-145); Troponin-I HS 4 pg/mL (3.0-54.0)
[2022-10-09 18:10] LABS: D-Dimer Quantitative (DVT/PE) < 0.27 FEU/ug/m (0.27-0.49)
== END 2022-10-09 18:24 | disposition home or self-care (01) ==
PROVIDERS: Emergency Provider Emergency Medicine; Visit Provider Emergency Medicine
DX: O98.52 Other viral diseases complicating childbirth (principal); Z3A.10 10 weeks gestation of pregnancy; B34.9 Viral infection, unspecified; Z85.850 Personal history of malignant neoplasm of thyroid
CPT/HCPCS: 71045; 80048; 84484; 85025; 85379; 87428; 93005; 99285; A4216

== ENCOUNTER 2023-01-10 19:34 | Emergency (ER) | payer MEDICAID, SELFPAY ==
[2023-01-10 19:39] VITALS: BP 124/53; PULSE 88; RESP 16; TEMP 36.6; O2SAT 98
--- NOTE | 2023-01-10 19:50 | RAD_ITS ---
INDICATION: INJURY EXAMINATION/TECHNIQUE: X-RAY - RIGHT XR Foot Min 3 Views 3 VIEWS COMPARISON: None. FINDINGS: SOFT TISSUES: Dorsal forefoot swelling. No radiopaque foreign body. BONES/JOINTS: Proximal fifth metatarsal diaphysis linear lucency with surrounding sclerosis and lateral and inferior cortical bulge. Lisfranc and Chopart planes appear normal Preservation of the joint spaces. RAD/Foot min 3 Views IMPRESSION: Proximal fifth metatarsal stress injury versus healing fracture. Electronically Signed: Logan Han MD at 20:17 EST ,
[2023-01-10 21:22] VITALS: BMI 55.4
--- NOTE | 2023-01-11 00:16 | ED.VIS.LOWEX ---
HPI History of Present Illness Chief Complaint: Lower Extremity Injury Narrative Narrative: Patient presenting with right foot pain. She states she slipped and hurt her right foot. She describes his pain over the dorsum of the right foot medially. No deformity. She is able to ambulate. No ankle pain. No numbness or tingling. Patient states that she is currently 23 weeks . Denies fall or abdominal injury. 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 Thyroid cancer Home Medications prenat.vits,chanel,[id number] 1 tab PO DAILY 03/28/20 [History Last Taken 10/09/22] levothyroxine 300 mcg tablet 300 mcg PO .Mon-Sat, skip Sun #26 tabs 07/04/22 [Rx Last Taken 10/09/22] Allergy/AdvReac Type Severity Reaction Status Date / Time No Known Allergies Allergy Verified 01/10/23 19:43 Family History Father Melanoma Mother Diabetes Surgical History H/O total thyroidectomy History of Social History Smoking Status: Never smoker second hand exposure: No alcohol intake: never substance use type: does not use caffeine: Yes what type of physical activity do you participate in: walking frequency: 1-2 times per week seatbelt use: always ROS ROS ED Constitutional Constitutional ED: Denies chills, fever(s) or sweats Eyes Eyes: Denies blurry vision or change in vision ENT ENT ED: Denies ear pain or sore throat Cardiovascular Cardiovascular: Denies chest pain, palpitations or racing heartbeat Respiratory/Chest Respiratory/Chest: Denies cough, dyspnea or sputum Gastrointestinal Gastrointestinal: Denies abdominal pain, constipation, diarrhea, nausea or vomiting Genitourinary Genitourinary ED: Denies dysuria, hematuria or urinary frequency Musculoskeletal Musculoskeletal: Reports other Details: Right foot pain ; Denies arthralgias, myalgias or neck pain Integumentary Denies abscess, Abrasions or rash Neurologic Neurologic: Denies headache(s), paresthesias or weakness Psychiatric Psychiatric: Denies anxiety, depression, suicidal ideation or suicidal thoughts Endocrine Endocrinology: Denies polydipsia or polyuria EXAM Physical Exam Const Vital Signs: 01/10/23 19:39 Temperature 97.9 F Temperature Source Temporal Pulse Rate 88 Respiratory Rate 16 Blood Pressure 124/53 H Blood Pressure Mean 76 Pulse Ox 98 Oxygen Delivery Method Room Air General Appearance ED: Negative for pallor HEENT Reports normocephalic, head/scalp atraumatic and moist mucous membranes Eyes PERRL and EOMs intact bilaterally Neck no lymphadenopathy and supple Chest Wall inspection of chest normal and palpation of chest normal Resp normal respiratory effort and clear to auscultation bilaterally Auscultation: Negative for rales, rhonchi or wheezes Cardio regular rate and regular rhythm Narrative: Deferred Extremity normal to inspection Extremity Narrative: Tenderness palpation over the medial aspect of the right foot at the base of the great toe. No deformity. Pedal pulses 2+. There is cap refill all 5 toes. Neurovascular intact. No pain at the base of the fifth metatarsal. Neuro oriented x3 and CN's II-XII intact bilaterally Sensorium / Orientation: alert Motor Exam: strength 5/5 throughout Psych mental status grossly normal Attitude: No agitated Skin no rashes or lesions noted and no wounds General Skin Exam: Negative for jaundice or pallor MDM MDM MDM Narrative Medical decision making narrative: Patient with pain over the medial aspect of the right foot. This is at the base of the great toe. No obvious deformity. Right foot neurovascular intact brisk cap refill all 5 toes. No pain at the base of the fifth. X-ray was obtained and on my interpretation shows no acute fracture. Radiologist interprets this as possible stress injury or healing fracture at the proximal fifth metatarsal. Patient reports to me she previously fractured this in the past. She does not have any pain here currently. Given this patient is given Sherman wrap. She requested crutches. Patient counseled only Tylenol for pain because she is . Patient discharged in stable condition. Impression: 1. Right foot strain Radiography Diagnostic Testing: Clinical Impression(s) from Imaging Studies Foot X-Ray 01/10/23 19:50 IMPRESSION: Proximal fifth metatarsal stress injury versus healing fracture. Electronically Signed: Logan Han MD at 20:17 EST , Discharge Plan Triage Chief Complaint: Lower Extremity Injury ED Provider: Christopher Gaona Dx/Rx/DC Orders Prescriptions: No Action prenat.vits,chanel,[id number] Tablet 1 tab PO DAILY levothyroxine 300 mcg tablet 300 mcg PO .Mon-Sat, skip Sun Qty: 26 3RF Primary Care Provider: [facility] Nereida Nolasco Referrals: [facility],Nereida Galan [Primary Care Provider] - Disposition Disposition: Home, Self Care Discharge Date/Time: 01/10/23 22:18
== END 2023-01-10 22:18 | disposition home or self-care (01) ==
PROVIDERS: Emergency Provider Student in an Organized Health Care Education/Training Program; Visit Provider Student in an Organized Health Care Education/Training Program
DX: O9A.212 Injury, poisoning and certain other consequences of external causes complicating pregnancy, second trimester (principal); S96.911A Strain of unspecified muscle and tendon at ankle and foot level, right foot, initial encounter; Z3A.23 23 weeks gestation of pregnancy
CPT/HCPCS: 73630; 99283